=== PATIENT | male | born 1935 | race Caucasian/White ===

== ENCOUNTER 2022-12-14 14:45 | Outpatient (CLI) | payer MEDICARE, SELFPAY | END 2022-12-14 14:46 | disposition home or self-care (01) | LOC: AMB 12-18 11:56 | PROVIDERS: PCP Family Medicine; Visit Provider Family Medicine | DX: I21.4 Non-ST elevation (NSTEMI) myocardial infarction (principal) | CPT/HCPCS: A0425; A0434 ==